=== PATIENT | male | born 1945 | race African-American/Black ===

== ENCOUNTER → 2018-10-02 | Outpatient (CLI) | payer MEDICARE ==
[~2018-10-02] MED LIST: IOPAMIDOL 370 MG/ML 200 ML INFUS..BTL INJ ONE; SODIUM CHLORIDE 0.9% 100 ML 100 ML ONE
[2018-10-02 10:42] LABS: BLOOD UREA NITROGEN < 3 mg/dL (8-26); BUN/CREATININE RATIO 4 (6-25); CREATININE, SERUM 0.7 mg/dL (0.9-1.3); EST GLOMERULAR FILTRATION RATE > 60 ML/MIN (60-)
--- NOTE | 2018-10-02 12:24 | Diagnostic Imaging Report ---
EXAMINATION: CTA of the abdomen, pelvis, and lower extremities with contrast. CT portal venous phase of the abdomen with contrast. TECHNIQUE: Helical axial CT images of the abdomen, pelvis, and lower extremities were obtained in the arterial phase after the uneventful administration 100 cc [id number]. Portal venous phase imaging of the abdomen was then performed. Coronal and sagittal reformatted images were available for review. For optimization of anatomic visualization, volume rendered reconstructions were generated on a stand-alone workstation under the direct supervision of the interpreting physician. COMPARISON: None available CLINICAL HISTORY:Abnormal liver function tests and intermittent claudication. DISCUSSION: Vasculature: There is calcified and noncalcified atherosclerotic plaque along the course of the abdominal aorta without aneurysmal dilatation. There is mild celiac axis origin stenosis. The SMA and TAWNY origins are widely patent. Single bilateral renal artery origins are widely patent. Iliac arterial systems: Right: Mild calcified and noncalcified atherosclerotic plaque of the iliac arterial system. The common and external iliac arteries are widely patent. The internal iliac artery and proximal visceral branches are patent. Left: Mild calcified and noncalcified atherosclerotic plaque of the iliac system. The common and external iliac arteries are widely patent. The internal iliac artery and proximal visceral branches are widely patent. Femoral-popliteal segments: Right: The common femoral artery is widely patent. Incidental note of a replaced obturator artery arising from the inferior epigastric artery. The femoral bifurcation is patent. The profunda femoris artery and proximal muscular branches are patent. There is atherosclerotic calcification along the course of the superficial femoral artery with mild stenosis at the adductor hiatus. There is also atherosclerotic calcification of the popliteal artery, without significant stenosis. Left: The common femoral artery is patent. Incidental note of a replaced obturator artery arising from the inferior epigastric artery. The femoral bifurcation is patent. Profunda femoris artery and proximal muscular branches are patent. There is atherosclerotic calcification along the course of the superficial femoral artery with mild stenosis at the level of the abductor hiatus. There is atherosclerotic plaque of the popliteal artery without significant stenosis. Runoff: Right: The anterior tibial artery is patent but occludes at the level of the upper calf. The tibioperoneal trunk is patent. The peroneal artery is patent to the level of the distal tibia, at which point it collateralizes with reconstitution of the dorsalis pedis artery (see series 3 image 317). The posterior tibial artery is patent to its continuation as the lateral plantar artery and is the dominant runoff vessel to the right foot. Left: The anterior tibial artery is patent proximally though is diffusely diseased and occludes at the level of the mid calf. The tibioperoneal trunk is patent. The peroneal artery is patent to the level of the distal tibia at which point it collateralizes and reconstitutes the dorsalis pedis artery, similar to the right leg. The posterior tibial artery is widely patent and is visualized to its continuation as the lateral plantar artery. ABDOMEN/PELVIS: LOWER THORAX:Trace linear and reticular opacities in the dependent lower lobes compatible with subsegmental atelectasis. HEPATOBILIARY: Hepatic parenchyma is diffusely hypoattenuating compatible with steatosis. Arterial and portal venous phases also show no focal hepatic lesion or intrahepatic biliary ductal dilatation. The gallbladder is unremarkable. SPLEEN: Calcified granuloma. No splenomegaly. PANCREAS: No focal masses or ductal dilatation. ADRENALS: No adrenal nodules. KIDNEYS/URETERS: Slightly malrotated right kidney. No hydronephrosis, calculi, or mass lesion. PELVIC ORGANS/BLADDER: Urinary bladder, prostate, and seminal vesicles are unremarkable. PERITONEUM/RETROPERITONEUM: No ascites or pneumoperitoneum. Peripherally calcified structure just inferior to the greater curvature of the stomach likely represents a lymph node from prior infectious or inflammatory process. LYMPH NODES: No pelvic sidewall, retroperitoneal, or mesenteric lymphadenopathy. GI TRACT: The large bowel shows no evidence of distention or wall thickening. The sigmoid colon is markedly redundant. The appendix is not definitively identified. No small bowel dilatation to suggest obstruction. BONES AND SOFT TISSUE: No osseous destructive lesions. Age indeterminant moderate anterior compression deformity of L1 with approximately 40% loss of anterior vertebral body height. No fragment retropulsion. 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 Nonaggressive appearing peripherally sclerotic lesion in the distal femur which may represent an enchondroma or bone infarct.. Degenerative changes of the sacroiliac joints. Advanced multilevel degenerative disc changes and facet arthropathy of the lumbar spine. Diffuse muscular atrophy. Otherwise no focal soft tissue abnormalities. IMPRESSION: Calcified and noncalcified atherosclerotic plaque in the abdominal aorta and bilateral lower extremity arterial systems with findings as follows: -No abdominal aortic aneurysm. -Mild celiac axis origin stenosis; otherwise widely patent abdominal visceral branch arteries. -No significant iliac inflow stenosis. -Mild bilateral short segment distal SFA stenoses (less than 30%). -Bilateral two-vessel runoff supplied by the peroneal and posterior tibial arteries. The anterior tibial arteries are diminutive and occlude proximally, which may be a congenital variant. Diffusely decreased hepatic parenchymal attenuation compatible with steatosis. No focal hepatic mass. Signed by: Dr. Ezra Billingsley M.D. on 10/02/2018 12:21 PM
== END ==
LOC: CT 09:44
PROVIDERS: ATTEND Internal Medicine Gastroenterology
DX: I73.9 Peripheral vascular disease, unspecified (principal)
CPT/HCPCS: 36415; 74160; 75635; 82565; 84520; Q9967